=== PATIENT | female | born 1990 | race Caucasian/White ===

== ENCOUNTER 2016-08-20 18:30 | Emergency (ER) | payer OTHER | END 2016-08-20 21:30 | disposition home or self-care (01) | LOC: ER1 18:30 | DX: J02.0 Streptococcal pharyngitis (principal) | CPT/HCPCS: 87081; 87880; 99283 ==

== ENCOUNTER → 2021-09-23 | Outpatient (CLI) | payer OTHER | LOC: HEART 5 10:06 | DX: R07.9 Chest pain, unspecified (principal); I08.8 Other rheumatic multiple valve diseases | CPT/HCPCS: 93306 ==